=== PATIENT | male | born 1930 | race Caucasian/White ===

== ENCOUNTER 2017-08-14 00:26 | Day surgery (SDC) | payer OTHER ==
[~2017-08-14 00:26] MED LIST: ALBU.083IS IH; ALBU90I INH; ALBU90OI61 INH; ASPI81CH PO; AZIT500 PO; BENZ100A PO; CHOL10002 PO; CLAR500; DOCU100 PO; FURO20 PO; HYDACE5; HYDCHL25 PO; IBUHYD PO; INDO25 PO; LEVSOD100; LEVSOD100 PO; LEVSOD125 PO; LEVSOD150 PO; LEVSOD50; LISHYD1012; LISHYD2012; LISI20 PO; METF500 PO; Micro-K10 MEQ; Norco 5-325 Ta1 EACH PO; OXYACE5T PO; PRED20 PO; Percocet 5-3251 EACH PO; RAME8 PO; ROSU10TA PO; ROSU5 PO; RXHYDACE PO; SPACER IH; TAMS.4ER PO; TRAZ100; VERA120ERB PO; ZOLP5 PO
== END 2017-08-14 22:37 | disposition home or self-care (01) ==
LOC: WOUND 00:26
DX: Z48.00 Encounter for change or removal of nonsurgical wound dressing (principal); I87.2 Venous insufficiency (chronic) (peripheral); L03.119 Cellulitis of unspecified part of limb; E11.622 Type 2 diabetes mellitus with other skin ulcer; I89.0 Lymphedema, not elsewhere classified; L97.812 Non-pressure chronic ulcer of other part of right lower leg with fat layer exposed; E11.29 Type 2 diabetes mellitus with other diabetic kidney complication; I10 Essential (primary) hypertension; E66.3 Overweight; I73.00 Raynaud's syndrome without gangrene; Z85.46 Personal history of malignant neoplasm of prostate; Z86.14 Personal history of Methicillin resistant Staphylococcus aureus infection; Z87.891 Personal history of nicotine dependence; Z88.1 Allergy status to other antibiotic agents; Z79.84 Long term (current) use of oral hypoglycemic drugs; Z22.322 Carrier or suspected carrier of Methicillin resistant Staphylococcus aureus
CPT/HCPCS: G0463

== ENCOUNTER 2018-11-16 11:38 | Inpatient (IN) | payer OTHER ==
[~2018-11-16] VITALS: Ht 172.7 cm; Wt 100.0 kg
[2018-11-16 12:50] LABS: BASOPHILS ABSOLUTE AUTO 0.02 K/mm3 (0.00-0.23); BASOPHILS PERCENT AUTO 0 % (0-2); EOSINOPHILS ABSOLUTE AUTO 0.04 K/mm3 (0.00-0.68); EOSINOPHILS PERCENT AUTO 0 % (0-6); Hematocrit 41.5 % (37.0-53.0); Hemoglobin 13.1 g/dL (13.5-17.5); IMMATURE GRAN ABSOLUTE AUTO 0.04 K/mm3 (0.00-0.10); IMMATURE GRAN PERCENT AUTO 0 % (0-1); LYMPHOCYTES ABSOLUTE AUTO 1.53 K/mm3 (0.84-5.20); LYMPHOCYTES PERCENT AUTO 17 % (21-46); MONOCYTES PERCENT AUTO 8 % (4-13); Mean Corpuscular HGB 28.3 pg (26.0-34.0); Mean Corpuscular HGB Conc 31.6 g/dL (31.5-36.5); Mean Corpuscular Volume 90 fL (80-100); NEUTROPHILS ABSOLUTE AUTO 6.74 K/mm3 (1.96-9.15); NEUTROPHILS PERCENT AUTO 74 % (41-73); Platelet Count 207 K/mm3 (150-400); RDW Standard Deviation 49.3 fL (35.1-46.3); Red Blood Cell Count 4.63 M/mm3 (4.30-5.90); White Blood Cell Count 9.07 K/mm3 (4.00-11.30)
[2018-11-16 13:20] LABS: Alanine Aminotransfer (ALT/SGP 29 U/L (12-78); Albumin, Blood 3.6 g/dL (3.4-5.0); Alk Phos 83 U/L (50-136); Anion Gap 11 mmol/L (6-16); Aspartate Aminotrans (AST/SGOT 23 U/L (12-37); Bilirubin, Total 0.8 mg/dL (0.1-1.0); Blood Urea Nitrogen 116 mg/dL (8-24); Bun/Creatinine Ratio 19.9 (12.0-20.0); CO2, Blood 17 mmol/L (21-32); Calcium, Blood 8.2 mg/dL (8.5-10.1); Chloride, Blood 108 mmol/L (98-108); Creatinine, Blood 5.84 mg/dL (0.60-1.20); Globulin, Blood 3.5 g/dL (2.2-4.0); Glomerular Filtration Rate 10 (60-); Glucose, Blood 89 mg/dL (70-99); Sodium, Blood 136 mmol/L (136-145); Total Protein, Blood 7.1 g/dL (6.4-8.2); Troponin I <0.015 ng/mL (0.000-0.040)
[2018-11-16] MEDS ORDERED: K-Dur10 MEQ (16:27)
[2018-11-16] MEDS ORDERED: Metformin HCl500 MG PO (16:27)
[2018-11-16 17:11] LABS: Magnesium, Blood 2.7 mg/dL (1.6-2.4)
--- NOTE | 2018-11-16 18:19 | NUR ---
HANDOFF NOTE RECEIVED HANDOFF FROM NURSE REYES IN ER. 87 YR OLD MALE ADMITTED FOR ARF. FULL CODE. LIVES AT [facility], CAREGIVER COMES TO HOUSE. POOR HISTORIAN. INDEPENDENT IN ROOM. ANAHI AREA IS RED AND EXCORIATED, MAY NEED HOSPITALIST TO ASSESS FOR YEAST INVOLVMENT. ACHS. CONTINENT. HX: PROSTATE CANCER, HTN, DEVELOPMENTAL DELAY, HYPERLIPIDEMIA, HYPOTHYROIDISM. CLEAR LIQUID DIET.
--- NOTE | 2018-11-17 04:37 | NUR ---
NOC SHIFT SUMMARY PT ADMITTED ON 11/16 FOR ACUTE RENAL FAILURE POSSIBLY FROM DEHYDRATION WELL DIARRHEA. HE IS A PLEASANT 87YO DEVELOPMENTALLY DELAYED MAN. HE IS COOPERATIVE WITH CARE. IND IN ROOM. RAMSEY IN TO SEE PT THIS NIGHT. HE DID ORDER AN INDWELLING CATHETER PLACED DUE TO URINARY RETENTION. ATTEMPTED TO PLACE CATHETER AND THUS FAR HAVE BEEN UNABLE. CHARGE NURSE CONSULTED. LAST BLADDER SCAN SHOWED 550ML. PT STATES HE DOES NOT FEEL UNCOMFORTABLE AND IS USUALLY ABLE TO VOID. VSS. PT CURRENTLY APPEARS IN NO ACUTE DISTRESS. WILL CONTINUE TO MONITOR.
[2018-11-17 05:05] LABS: BASOPHILS ABSOLUTE AUTO 0.03 K/mm3 (0.00-0.23); BASOPHILS PERCENT AUTO 1 % (0-2); EOSINOPHILS ABSOLUTE AUTO 0.11 K/mm3 (0.00-0.68); EOSINOPHILS PERCENT AUTO 2 % (0-6); Hematocrit 38.4 % (37.0-53.0); Hemoglobin 12.2 g/dL (13.5-17.5); IMMATURE GRAN ABSOLUTE AUTO 0.02 K/mm3 (0.00-0.10); IMMATURE GRAN PERCENT AUTO 0 % (0-1); LYMPHOCYTES ABSOLUTE AUTO 1.22 K/mm3 (0.84-5.20); LYMPHOCYTES PERCENT AUTO 21 % (21-46); MONOCYTES ABSOLUTE AUTO 0.51 K/mm3 (0.16-1.47); MONOCYTES PERCENT AUTO 9 % (4-13); Mean Corpuscular HGB Conc 31.8 g/dL (31.5-36.5); Mean Corpuscular Volume 91 fL (80-100); Mean Platelet Volume 10.6 fL (9.1-12.4); NEUTROPHILS ABSOLUTE AUTO 4.07 K/mm3 (1.96-9.15); NEUTROPHILS PERCENT AUTO 68 % (41-73); Platelet Count 180 K/mm3 (150-400); RDW Coefficient Variation 14.8 % (11.7-14.2); RDW Standard Deviation 49.6 fL (35.1-46.3); White Blood Cell Count 5.96 K/mm3 (4.00-11.30)
[2018-11-17 05:30] LABS: Alanine Aminotransfer (ALT/SGP 27 U/L (12-78); Albumin, Blood 3.3 g/dL (3.4-5.0); Alk Phos 77 U/L (50-136); Anion Gap 10 mmol/L (6-16); Aspartate Aminotrans (AST/SGOT 20 U/L (12-37); Bilirubin, Total 0.8 mg/dL (0.1-1.0); Blood Urea Nitrogen 108 mg/dL (8-24); Bun/Creatinine Ratio 23.6 (12.0-20.0); CO2, Blood 17 mmol/L (21-32); Chloride, Blood 111 mmol/L (98-108); Creatinine, Blood 4.58 mg/dL (0.60-1.20); Globulin, Blood 3.2 g/dL (2.2-4.0); Glomerular Filtration Rate 13 (60-); Glucose, Blood 83 mg/dL (70-99); Magnesium, Blood 2.4 mg/dL (1.6-2.4); Phosphorus, Blood 4.9 mg/dL (2.5-4.9); Potassium, Blood 4.6 mmol/L (3.5-5.5); Sodium, Blood 138 mmol/L (136-145); Total Protein, Blood 6.5 g/dL (6.4-8.2)
--- NOTE | 2018-11-17 18:03 | NUR ---
SHIFT SUMMARY 87 YR OLD MALE ADMITTED FOR ACUTE RENAL FAILURE. FULL CODE. DR RAMSEY FOLLOWING. PT UNABLE TO COMPLETELY EMPTY HIS BLADDER ACCORDING TO BLADDER SCAN (526 ML), BUT HAD A SIGNIFICANT INCONTINENT UNMEASURED VOID FOLLOWING THAT. ATTEMPTS AT FOLEYS HAVE BEEN UNSUCCESSFUL. UROLOGY IS UNAVAILABLE TO ASSIST. CLEAR LIQUID DIET. ROOM AIR. ACHS CHEMSTICKS. SODIUM BICARB IS INFUSING AT 75 ML/HR. PT LIVES AT [facility], A CAREGIVER VISITS HIM. HX: PROSTATE CANCER, HTN, DM2, HYPOTHYROID, DEVELOPMENTALLY DELAYED.
[2018-11-17 18:30] LABS: Source, Urine Clean Catch
[2018-11-17 18:34] LABS: Bilirubin, Urine Neg (Neg); Blood, Urine 3+ (Neg); Glucose Qualitative, Urine Neg (Neg); Ketones, Urine Neg (Neg); Leukocyte Esterase, Urine 3+ (Neg); Nitrite, Urine Neg (Neg); Protein, Urine 1+ (Neg); Urobilinogen, Urine NORM (Normal)
[2018-11-17 18:42] LABS: Appearance, Urine Clear (Clear); Color, Urine Yellow (P-Yellow)
[2018-11-17 18:43] LABS: White Blood Cells, Urine 25-50 /hpf (0-5)
[2018-11-17 18:44] LABS: Bacteria Mod /hpf; Squamous Epithelial Cells Rare /hpf (Few)
[2018-11-18 05:00] LABS: BASOPHILS ABSOLUTE AUTO 0.02 K/mm3 (0.00-0.23); BASOPHILS PERCENT AUTO 0 % (0-2); EOSINOPHILS ABSOLUTE AUTO 0.18 K/mm3 (0.00-0.68); EOSINOPHILS PERCENT AUTO 4 % (0-6); Hematocrit 36.6 % (37.0-53.0); Hemoglobin 11.8 g/dL (13.5-17.5); IMMATURE GRAN ABSOLUTE AUTO 0.02 K/mm3 (0.00-0.10); IMMATURE GRAN PERCENT AUTO 0 % (0-1); LYMPHOCYTES ABSOLUTE AUTO 1.08 K/mm3 (0.84-5.20); LYMPHOCYTES PERCENT AUTO 23 % (21-46); MONOCYTES ABSOLUTE AUTO 0.43 K/mm3 (0.16-1.47); MONOCYTES PERCENT AUTO 9 % (4-13); Mean Corpuscular HGB 28.6 pg (26.0-34.0); Mean Corpuscular HGB Conc 32.2 g/dL (31.5-36.5); Mean Corpuscular Volume 89 fL (80-100); Mean Platelet Volume 10.8 fL (9.1-12.4); NEUTROPHILS ABSOLUTE AUTO 2.89 K/mm3 (1.96-9.15); NEUTROPHILS PERCENT AUTO 63 % (41-73); Platelet Count 165 K/mm3 (150-400); RDW Coefficient Variation 14.4 % (11.7-14.2); RDW Standard Deviation 46.8 fL (35.1-46.3); Red Blood Cell Count 4.13 M/mm3 (4.30-5.90); White Blood Cell Count 4.62 K/mm3 (4.00-11.30)
[2018-11-18 05:27] LABS: Albumin, Blood 3.3 g/dL (3.4-5.0); Anion Gap 9 mmol/L (6-16); Blood Urea Nitrogen 87 mg/dL (8-24); Bun/Creatinine Ratio 28.2 (12.0-20.0); CO2, Blood 18 mmol/L (21-32); CPK Creatine Kinase 303 U/L (39-308); Calcium, Blood 8.1 mg/dL (8.5-10.1); Chloride, Blood 113 mmol/L (98-108); Creatinine, Blood 3.09 mg/dL (0.60-1.20); Glomerular Filtration Rate 20 (60-); Glucose, Blood 89 mg/dL (70-99); Magnesium, Blood 2.4 mg/dL (1.6-2.4); Phosphorus, Blood 5.3 mg/dL (2.5-4.9); Sodium, Blood 140 mmol/L (136-145)
--- NOTE | 2018-11-18 07:32 | NUR ---
NOC SHIFT SUMMARY PT WAS ADMITTED WITH ARF POSSIBLY FROM DEHYDRATION. HE HAS BEEN PLEASANT AND COOPERATIVE WITH CARE THIS NIGHT. MORE CONFUSED THIS NIGHT THAN HE WAS LAST NIGHT. HE HAS PULLED TWO IV LINES OUT. HE IS VERY FORGETFUL AND OFTEN GET UP WITHOUT USING HIS CALL LIGHT. VSS. HE APPEARS IN NO ACUTE DISTRESS. REPORT TO ONCOMING RN.
--- NOTE | 2018-11-18 17:09 | NUR ---
PT IS A/O X3 PLEASANT AND COOPERATIVE, TGHE PT GETS UP IMPULSIVLY T/O THE DAY THE PT WAS PUT IN A ILYA VEST FOR MOST OF THE MORNING UNTIL THE [place] THE PT WAS INSTRUCTED ON HIS IV AND HOE TO INSURE THAT IT WOULDNT GET PULLED OUT AND SO FAR HAS BEEN COOPERATIVE WITH THAT, THE PT GETS SOB WITH ACTIVITY, OTHERWISE APPEARS TO BE BREATHING EASILY ON RA AT REST, CALL LIGHT IN REACH WILL CONTINUE TO MONITOR AND ASSESS FOR CHANGES, BED ALARM AND CHAIR ALARMS IN USE
--- NOTE | 2018-11-19 04:49 | NUR ---
SHIFT SUMMARY PATIENT IS ALERT TO SELF. IS FORGETFUL, GETS OUT OF BED WITHOUT ASKING FOR HELP, BED ALARM ON. PER REPORT PATIENT HAD PULLED OUT SEVERAL IV'S GETTING OUT OF BED GOING TO BATHROOM. PATIENT DOES NOT LIKE TO USE URINAL. HOWEVER IT HAS BEEN EXPLAINED TO PATIENT THAT IT IS IMPORTANT FOR US TO BE ABLE TO MEASURE HIS URINE OUTPUT SINCE HE IS HAVING TROUBLE EMPTYING BLADDER COMPLETELY. BLADDER SCANS SHOW RESIDUAL'S OF 600+. THE DOCTORS NOTES STATE THEY ARE AWARE AND HAVE PLANS FOR PT TO F/U WITH UROLOGY WHEN DISCHARGED. PATIENT PULLED IV OUT THIS AM, WAS RECIEVING FLUIDS. WILL CALL HOSPITALIST TO SEE IF THEY WANT TO HOLD OFF ON RESTARTING ANOTHER IV SINCE PT IS TO DISCHARGE TODAY. BLOOD PRESSURE WAS SLIGHTLY ELEVATED. NO OTHER CHANGES NOTED.
[2018-11-19 05:09] LABS: BASOPHILS ABSOLUTE AUTO 0.01 K/mm3 (0.00-0.23); BASOPHILS PERCENT AUTO 0 % (0-2); EOSINOPHILS ABSOLUTE AUTO 0.15 K/mm3 (0.00-0.68); EOSINOPHILS PERCENT AUTO 3 % (0-6); Hematocrit 36.6 % (37.0-53.0); Hemoglobin 11.9 g/dL (13.5-17.5); IMMATURE GRAN ABSOLUTE AUTO 0.03 K/mm3 (0.00-0.10); IMMATURE GRAN PERCENT AUTO 1 % (0-1); LYMPHOCYTES ABSOLUTE AUTO 1.24 K/mm3 (0.84-5.20); LYMPHOCYTES PERCENT AUTO 26 % (21-46); MONOCYTES ABSOLUTE AUTO 0.44 K/mm3 (0.16-1.47); MONOCYTES PERCENT AUTO 9 % (4-13); Mean Corpuscular HGB 28.3 pg (26.0-34.0); Mean Corpuscular HGB Conc 32.5 g/dL (31.5-36.5); Mean Corpuscular Volume 87 fL (80-100); Mean Platelet Volume 10.6 fL (9.1-12.4); NEUTROPHILS ABSOLUTE AUTO 2.96 K/mm3 (1.96-9.15); NEUTROPHILS PERCENT AUTO 61 % (41-73); Platelet Count 172 K/mm3 (150-400); RDW Coefficient Variation 14.5 % (11.7-14.2); RDW Standard Deviation 46.1 fL (35.1-46.3); White Blood Cell Count 4.83 K/mm3 (4.00-11.30)
[2018-11-19 05:42] LABS: Albumin, Blood 3.4 g/dL (3.4-5.0); Anion Gap 9 mmol/L (6-16); Blood Urea Nitrogen 66 mg/dL (8-24); Bun/Creatinine Ratio 29.1 (12.0-20.0); CO2, Blood 21 mmol/L (21-32); Chloride, Blood 112 mmol/L (98-108); Creatinine, Blood 2.27 mg/dL (0.60-1.20); Glomerular Filtration Rate 29 (60-); Glucose, Blood 100 mg/dL (70-99); Phosphorus, Blood 4.8 mg/dL (2.5-4.9); Potassium, Blood 3.8 mmol/L (3.5-5.5); Sodium, Blood 142 mmol/L (136-145)
[2018-11-19] MEDS ORDERED: DOXA4 PO (13:49)
--- NOTE | 2018-11-19 14:47 | NUR ---
PT DISCHARGED THE PT AND HIS FAMILY VERBALIZED UNDERSTANDING OF THE DC INSTRUCTIONS, POST FOLLOW UP APPOINTMENTS ARRANGED FOR THE PT AND GIVEN WITH THE DC INSTRUCTIONS, PT IS A/OX3, APPEARED TO BE BREATHING EASILY ON RA, THE PT WAS TRANSFERED VIA WHEELCHAIR ACCOMPANIED BY HIS FAMILY AND THE LAST PUTTER AWAY
== END 2018-11-19 14:52 | disposition home or self-care (01) | DRG 683 ==
LOC: ER 11:38 → MEDS 16:52 → ENPENDDIS 11-19 14:06 → MEDS 11-19 14:52
PROVIDERS: Emergency Medicine; ADMIT Internal Medicine
DX: N17.0 Acute kidney failure with tubular necrosis (principal); E87.2 Acidosis; N25.81 Secondary hyperparathyroidism of renal origin; E78.5 Hyperlipidemia, unspecified; R62.50 Unspecified lack of expected normal physiological development in childhood; E03.9 Hypothyroidism, unspecified; Z96.643 Presence of artificial hip joint, bilateral; Z79.84 Long term (current) use of oral hypoglycemic drugs; Z87.891 Personal history of nicotine dependence; N18.2 Chronic kidney disease, stage 2 (mild); E11.22 Type 2 diabetes mellitus with diabetic chronic kidney disease; H40.9 Unspecified glaucoma; D63.1 Anemia in chronic kidney disease; R33.9 Retention of urine, unspecified; C61 Malignant neoplasm of prostate; N13.9 Obstructive and reflux uropathy, unspecified; I12.9 Hypertensive chronic kidney disease with stage 1 through stage 4 chronic kidney disease, or unspecified chronic kidney disease
CPT/HCPCS: 36415; 51798; 76770; 80053; 80069; 81001; 82550; 82947; 83036; 83690; 83735; 84100; 84443; 84484; 85025; 87086; 93005; 93010; 97161; 97530; 99285-25; G0103; J0696; J1644; J7030; J7120

== ENCOUNTER 2019-08-20 16:58 | Emergency (ER) | payer OTHER ==
[~2019-08-20] VITALS: Ht 172.7 cm; Wt 108.9 kg
[~2019-08-20 16:58] MED LIST changes: +DOXA4 PO; +K-Dur10 MEQ; +Metformin HCl500 MG PO
[2019-08-20] MEDS ORDERED: K-Dur10 MEQ (17:08)
[2019-08-20] MEDS ORDERED: METFORMIN HCL500 M2 PO (17:08)
[2019-08-20] MEDS ORDERED: PRINIVIL10 MG PO (17:09)
[2019-08-20 17:34] LABS: BASOPHILS ABSOLUTE AUTO 0.02 K/mm3 (0.00-0.23); BASOPHILS PERCENT AUTO 0 % (0-2); EOSINOPHILS ABSOLUTE AUTO 0.01 K/mm3 (0.00-0.68); EOSINOPHILS PERCENT AUTO 0 % (0-6); Hematocrit 39.5 % (37.0-53.0); Hemoglobin 12.6 g/dL (13.5-17.5); IMMATURE GRAN ABSOLUTE AUTO 0.15 K/mm3 (0.00-0.10); IMMATURE GRAN PERCENT AUTO 2 % (0-1); LYMPHOCYTES ABSOLUTE AUTO 0.48 K/mm3 (0.84-5.20); LYMPHOCYTES PERCENT AUTO 6 % (21-46); MONOCYTES ABSOLUTE AUTO 0.33 K/mm3 (0.16-1.47); MONOCYTES PERCENT AUTO 4 % (4-13); Mean Corpuscular HGB 28.9 pg (26.0-34.0); Mean Corpuscular HGB Conc 31.9 g/dL (31.5-36.5); Mean Corpuscular Volume 91 fL (80-100); Mean Platelet Volume 10.7 fL (9.1-12.4); NEUTROPHILS ABSOLUTE AUTO 7.74 K/mm3 (1.96-9.15); NEUTROPHILS PERCENT AUTO 89 % (41-73); Platelet Count 233 K/mm3 (150-400); RDW Coefficient Variation 14.9 % (11.7-14.2); RDW Standard Deviation 49.8 fL (35.1-46.3); Red Blood Cell Count 4.36 M/mm3 (4.30-5.90); White Blood Cell Count 8.73 K/mm3 (4.00-11.30)
[2019-08-20 17:50] LABS: Albumin, Blood 3.7 g/dL (3.4-5.0); Albumin/Globulin Ratio 0.9 (0.8-1.8); Bilirubin, Total 1.2 mg/dL (0.1-1.0); Bun/Creatinine Ratio 26.4 (12.0-20.0); Calcium, Blood 9.7 mg/dL (8.5-10.1); Creatinine, Blood 1.4 mg/dL (0.60-1.20); Globulin, Blood 4.3 g/dL (2.2-4.0); Potassium, Blood 3.6 mmol/L (3.5-5.5)
[2019-08-20 18:38] LABS: Source, Urine Clean Catch
[2019-08-20 18:44] LABS: Appearance, Urine Cloudy (Clear); Bilirubin, Urine Neg (Neg); Blood, Urine 4+ (Neg); Color, Urine Yellow (P-Yellow); Glucose Qualitative, Urine Neg (Neg); Ketones, Urine 3+ (Neg); Leukocyte Esterase, Urine 3+ (Neg); Nitrite, Urine Neg (Neg); Protein, Urine 3+ (Neg); Urobilinogen, Urine NORM (Normal)
[2019-08-20 19:13] LABS: Bacteria Many /hpf; Red Blood Cells, Urine TNTC /hpf (0-2); Squamous Epithelial Cells Few /hpf (Few); Triple Phosphate Crystals Mod /hpf; White Blood Cells, Urine TNTC /hpf (0-5)
[2019-08-20] MEDS ORDERED: ONDA4ODT MM (19:29)
[2019-08-20] MEDS ORDERED: CEFP200 PO (19:29)
== END 2019-08-20 20:20 | disposition home or self-care (01) ==
LOC: ER 16:58
PROVIDERS: Emergency Medicine
DX: N30.90 Cystitis, unspecified without hematuria (principal); I10 Essential (primary) hypertension; N13.30 Unspecified hydronephrosis; E11.9 Type 2 diabetes mellitus without complications; E03.9 Hypothyroidism, unspecified; E78.5 Hyperlipidemia, unspecified; Z88.0 Allergy status to penicillin; Z79.899 Other long term (current) drug therapy; Z79.84 Long term (current) use of oral hypoglycemic drugs; Z79.82 Long term (current) use of aspirin; Z79.51 Long term (current) use of inhaled steroids; Z87.891 Personal history of nicotine dependence
CPT/HCPCS: 36415; 74176; 80053; 81001; 83690; 85025; 87077; 87086; 87186; 93005; 93010; 96374; 96375; 96376; 99284-25; A9270-GY; J0360; J2405